=== PATIENT | female | born 1965 | race Hispanic/Latino ===

== ENCOUNTER → 2018-12-11 | Outpatient (CLI) | payer OTHER ==
--- NOTE | 2018-12-11 10:58 | Diagnostic Imaging Report ---
EXAMINATION: Right upper quadrant ultrasound CLINICAL INDICATION: Elevated liver function tests COMPARISON: None DISCUSSION: Transverse and longitudinal images of the right upper quadrant were obtained. The liver is normal in size measuring 14centimeters in length in the right midclavicular line and shows normal echogenicity. No focal masses are seen in the liver. There is no intrahepatic biliary dilatation. The common bile duct is normal in caliber measuring 0.5 cm. the main portal vein is normal in caliber and measures 9 mm with normal hepatopetal flow. The gallbladder is normal in appearance without stones, wall thickening or pericholecystic fluid. The sonographic Hastings's sign is negative. The visualized portions of the pancreatic body are unremarkable. The right kidney measures 10.2 centimeters in length. There is normal renal cortical echogenicity and no hydronephrosis, mass or shadowing calculi. IVC is patent. Abdominal aorta is not aneurysmal.. No free fluid is seen. IMPRESSION: Unremarkable right upper quadrant ultrasound. Signed by: Dr. Mason Gordon M.D. on 12/11/2018 10:54 AM
== END ==
LOC: US 07:58
PROVIDERS: ATTEND Internal Medicine Gastroenterology
DX: R74.8 Abnormal levels of other serum enzymes (principal)
CPT/HCPCS: 76705